=== PATIENT | male | born 2000 | race Caucasian/White ===

== ENCOUNTER 2024-01-28 11:33 | Inpatient (IN) | payer OTHER ==
[~2024-01-28] VITALS: Ht 172.7 cm; Wt 84.2 kg
[~2024-01-28 11:33] MED LIST: CIPRO500 MG PO; METRONIDAZOLE500 MG PO; SULFASALAZINE500 MG PO
--- OUTSIDE RECORDS SUMMARY | 2024-01-28 11:39 | XMS ---
PreManage Notification: ISAAC RATLIFF Security Background Investigator Events No recent Security Events currently on file CRITERIA MET - [facility] - 2 Visits in 30 Days CARE PROVIDERS There are no care providers on record at this time. Foster has no Care Guidelines for this patient. [facility] (12 MO.) [facility] NOTE: Visits indicate total known visits. ED/C VISIT TRACKING (12 MO.) 01/28/2024 11:[address] [facility] [place] TYPE: Emergency COMPLAINT: - ABDOMINDAL PAIN 01/25/2024 20:[address] [facility] [place] TYPE: Emergency COMPLAINT: - RECTAL BLEEDING DIAGNOSES: - Allergy status to narcotic agent - Allergy status to penicillin - Hemorrhage of anus and rectum - Noninfective gastroenteritis and colitis, unspecified INPATIENT VISIT TRACKING (12 MO.) No inpatient visits to display in this time frame [email or web address]
[2024-01-28 11:49] LABS: HEMATOCRIT 36.8 % (35.0-50.0); HEMOGLOBIN 12.2 g/dL (12.0-18.0); MCHC 33.3 g/dl (30-36); MCV 87.3 fl (81-99); PLATELET COUNT 333 K/uL (140-440); RBC 4.21 M/ul (4.3-5.7); RDW 13.6 (10.5-15.0)
[2024-01-28 12:00] LABS: ALBUMIN 3.1 g/dL (3.4-5.0); ALBUMIN/GLOBULIN RATIO 0.72 (1.1-2.4); ANION GAP 12.8 (7-21); BILIRUBIN, TOTAL 0.2 ng/dL (0.2-1.0); BUN/CREATININE RATIO 9.48 (6.0-28.6); CREATININE, SERUM 1.16 mg/dL (0.70-1.30); POTASSIUM 3.8 mmol/L (3.5-5.1); PROTEIN, TOTAL 7.4 g/dL (6.4-8.2)
[2024-01-28] MEDS ORDERED: ondansetron HCL 4 MG/2 ML VIAL IV ONE (12:00)
[2024-01-28] MEDS ORDERED: SODIUM CHLORIDE 0.9% 1,000 ML IV PRN (12:00)
[2024-01-28] MEDS ORDERED: KETOROLAC TROMETHAMINE 15 MG/ML VIAL IV ONE (12:00)
[2024-01-28 12:07] LABS: EOSINOPHILS, MANUAL DIFF 1; LYMPHOCYTES, MANUAL DIFF 8; MONOCYTES, MANUAL DIFF 9; NEUTROPHILS, MANUAL DIFF 82
[2024-01-28 12:27] LABS: LACTIC ACID, BLOOD 1.9 mmol/L (0.4-2.0)
[2024-01-28 13:12] LABS: BILIRUBIN, URINE NEGATIVE (negative); BLOOD/HGB, URINE NEGATIVE (Negative); KETONE, URINE TRACE (Negative); LEUK ESTERASE, URINE NEGATIVE (negative); NITRITE, URINE NEGATIVE (negative)
[2024-01-28] MEDS ORDERED: HYDROCORTISONE SOD SUCCINATE 100 MG/2 ML VIAL IV ONE (14:00)
[2024-01-28] MEDS ORDERED: FAMOTIDINE 20 MG/ 2 ML VIAL IV SCH (14:07)
[2024-01-28] MEDS ORDERED: HEParin SOD (PORCINE) 5,000 UNIT/0.5 ML SYR SUB-Q SCH (14:07)
[2024-01-28] MEDS ORDERED: LACTATED RINGER'S 1,000 ML IV ONE (14:15)
[2024-01-28] MEDS ORDERED: levoFLOXacin 500 MG/100 ML BAG IV SCH (14:15)
[2024-01-28] MEDS ORDERED: KETOROLAC TROMETHAMINE 30 MG/ML VIAL IV PRN (14:15)
[2024-01-28] MEDS ORDERED: HYDROmorphone HCL 1 MG/ML SYR IV PRN (14:15)
[2024-01-28] MEDS ORDERED: LACTATED RINGER'S 1,000 ML IV SCH (14:15)
[2024-01-28] MEDS ORDERED: PROCHLORPERAZINE EDISYLATE 10 MG/2 ML VIAL IV PRN (14:15)
--- NOTE | 2024-01-28 14:30 | NUR ---
PT TO ROOM VIA STRETCHER FROM ER. REPORT RECEIVED FROM BEBE PERSON. 2 GUARDS IN ROOM, PT IN SHACKLES (HANDS AND FEET). PT STATES HE IS HAVING PAIN IN HIS "COLON AND ASS". STATES HIS PAIN IS AT A 4/10 AT THIS TIME AND TOLERABLE, DENIES N/V AT THIS TIME. PT AWARE THAT WE NEED A STOOL SAMPLE AND THAT HE IS NPO AT THIS TIME.
[2024-01-28 15:48] VITALS: BP 122/68
[2024-01-28] MEDS ORDERED: MESALAMINE 400 MG CAPCR PO SCH (16:00)
--- NOTE | 2024-01-28 16:00 | NUR ---
PT RESTING IN BED WITH 2 GUARDS AT BEDSIDE NO REQUESTS AT THIS TIME. PT SHACKLED. CALL LIGHT WITHIN REACH.
[2024-01-28] MEDS ORDERED: BUPRENORPHIN-N1 EACH SL (16:56)
[2024-01-28] MEDS ORDERED: REMERON15 MG PO (16:56)
[2024-01-28] MEDS ORDERED: METHYLPREDNISOLO4 M1 PO (16:57)
[2024-01-28] MEDS ORDERED: AZULFIDINE500 MG PO (16:58)
[2024-01-28] MEDS ORDERED: METRONIDAZOLE500 MG PO (16:58)
--- NOTE | 2024-01-28 16:59 | NUR ---
MED REC COMPLETE
--- NOTE | 2024-01-28 18:24 | NUR ---
PT RESTING IN BED WITH 2 GUARDS AT BEDSIDE, CALL LIGHT WITHIN REACH. NO REQUESTS AT THIS TIME.
--- NOTE | 2024-01-28 19:20 | NUR ---
REPORT RECEIVED FROM GRETA SPENCE. PATIENT AWAKE STANDING AT FOOT OF THE BED IN ROOM. PATIENT REQUESTING FOOD AND DRINK. RN EDUATED PATIENT ON IMPORTANCE OF DIET COMPLIANCE WITH NPO. PATIENT REQUESTING A WARM BLANKET. WARM BLANKET GIVEN. IV SITE WNL, FLUIDS RUNNING WITH NO ISSUES OR CONCERNS. CALL LIGHT WITHIN REACH. OFFICERS AT BEDSIDE WITH PATIENT.
--- NOTE | 2024-01-28 21:15 | NUR ---
PATIENT RESTING IN BED. RN ADMINSTRATING HS MEDICATIONS. HS HEPARIN HELD DUE TO ED ADMINSTRATION TIME. PATIENT AGITATED WITH BEING IN THE HOSPITAL. QUICK TO TALK OVER THIS NURSE. STATING, " IT'S MY CHOICE TO BE TREATED BY YOU GUYS." PATIENT UPSET ABOUT DIET, WANTING TO EAT. RN EDUCATED PATIENT ON IMPORTANCE OF DIET. RN ABLE TO HAVE PATIENT DEMONSTRATE UNDERSTANDING OF IMPORTANCE OF POC AT THIS TIME BY PATIENT'S AGGREANCE TO STAY TONIGHT AND SPEAK WITH DR. DESAI IN THE MORNING. PATIENT DENIES INCREASED PAIN AT THIS TIME. BOWEL TONES POSITIVE X 4 QUADRANTS. IV SITES PATENT. IVF INFUSING WITH NO ISSUES OR CONCERNS. URINAL EMPTIED. NO FURTHER NEEDS AT THIS TIME, CALL LIGHT WITHIN REACH. OFFICERS AT BEDSIDE.
[2024-01-28 21:37] VITALS: BP 135/82
[2024-01-28 22:00] VITALS: BP 135/82
[2024-01-28] MEDS ORDERED: HYDROCORTISONE SOD SUCCINATE 100 MG/2 ML VIAL IV SCH (22:00)
[2024-01-29] VITALS (15 sets, daily range): BP systolic 114–132; BP diastolic 61–92
--- NOTE | 2024-01-29 00:16 | NUR ---
CALL LIGHT ANSWERED. STOOL SAMPLE OBTAINED. PATIENT WITH NO FURTHER NEEDS AT THIS TIME. CALL LIGHT WITHIN REACH. OFFICERS IN ROOM WITH PATIENT.
--- NOTE | 2024-01-29 00:42 | NUR ---
PATIENT EXPRESSED TO THIS RN THAT HE TAKES SUBOXONE 8MG DAILY. THIS RN CONTACTED [facility] AND SPOKE WITH NURSE KEY LUIS WHO CONFIRMED THAT PATIENT TAKING SUBOXONE 8MG DAILY. PATIENT WITH NO S/SX OF WITHDRAW AT THIS TIME. PATIENT CALM RESTING IN BED.
--- NOTE | 2024-01-29 02:00 | NUR ---
PATIENT RESTING IN BED. AWAKE, VSS. DENIES ANY PAIN AT THIS TIME, BOWEL TONES ACTIVE X4. NO FURTHER STOOLS AT THIS TIME. NO NAUSEA OR VOMITTING. CALL LIGHT WITHIN REACH, OFFICERS AT BEDSIDE.
--- NOTE | 2024-01-29 04:00 | NUR ---
PATIENT RESTING IN BED WITH EYES CLOSED. RESPIRATIONS EVEN AND UNLABORED. OFFICERS AT BED SIDE. CALL LIGHT WITHIN REACH.
[2024-01-29 05:27] LABS: BASOPHILS 0.4 % (0-2); EOSINOPHILS 0.4 % (0-6); HEMATOCRIT 36.4 % (35.0-50.0); HEMOGLOBIN 11.6 g/dL (12.0-18.0); LYMPHOCYTES 11.6 % (24-44); MCH 27.9 (27-36); MONOCYTES 8.2 % (0-12); NEUTROPHILS 79.4 % (39-80); PLATELET COUNT 310 K/uL (140-440); RBC 4.18 M/ul (4.3-5.7); RDW 13.6 (10.5-15.0)
--- NOTE | 2024-01-29 05:40 | NUR ---
PATIENT AWAKE IN BED. LAB IN ROOM. PATIENT C/O PAIN IN ABDOMEN AND RECTUM 01/28. PRN ADMINSTERED SEE AUG. NEW BAG OF IVF HUNG. IV SITE PATENT. DENIES ANY NAUSEA. ICE CHIPS GIVEN FOR COMFORT. NO FURTHER NEEDS AT THIS TIME, CALL LIGHT WITHIN REACH. OFFICERS AT BED SIDE.
[2024-01-29 05:45] LABS: ALBUMIN 2.8 g/dL (3.4-5.0); ALBUMIN/GLOBULIN RATIO 0.7 (1.1-2.4); ANION GAP 13.6 (7-21); BILIRUBIN, TOTAL 0.3 ng/dL (0.2-1.0); BUN/CREATININE RATIO 7.77 (6.0-28.6); CALCIUM 8.7 mg/dL (8.5-10.1); CREATININE, SERUM 0.9 mg/dL (0.70-1.30); POTASSIUM 3.6 mmol/L (3.5-5.1); PROTEIN, TOTAL 6.8 g/dL (6.4-8.2)
--- NOTE | 2024-01-29 06:21 | NUR ---
PATIENT AWAKE IN BED WATCHING TV. OFFICERS AT BEDSIDE. IVF INFUSING WITH NO ISSUES OR CONCERNS. NO NEEDS AT THIS TIME. CALLL LIGHT WITHIN REACH.
--- NOTE | 2024-01-29 07:05 | NUR ---
REPORT RECEIVED FROM COAT HANGER SHAPER MACHINE OPERATOR RN LAKSHMI. PATIENT IS SITTING UPRIGHT IN BED WITH EYES OPEN AND RESPIRATIONS ARE EVEN AND UNLABORED. PATIENT WITH 2 [facility] GUARDS AT THE BEDSIDE. PATIENT STATED NO FURTHER NEEDS. CALL LIGHT IS IN REACH.
[2024-01-29] MEDS ORDERED: HYDROCORTISONE SOD SUCCINATE 100 MG/2 ML VIAL ONE (09:45)
--- NOTE | 2024-01-29 09:55 | NUR ---
HYDROCORTISONE DOSE ADMINSTERED PER THE EMAR. FULL ASSESSMENT COMPLETE AND DOCUMENTED IN THE CHART. PATIENT WITH PAIN RATED 5/10 IN THE ABDOMEN. PATIENT IS NOT REQUESTING PAIN MEDICATION AT THIS TIME. SENSATION INTACT WITH NO COMPLAINTS OF NUMBNESS AND TINGLING. LUNG SOUNDS ARE CLEAR IN ALL LUNG GRIDER BILATERALLY AND THE PATIENT IS ON ROOM AIR. IV SITE IN THE RAC FLUSHED WITH 10 ML NORMAL SALINE. IV DRESSING IS CLEAN, DRY, AND INTACT. LR IS INFUSING AT 85 ML/HR. LEVAQUIN INFUSION COMPLETE. IV SITE IN THE LAC DUE TO PATIENT REQUEST AND PAIN WITH FLUSHING THE SITE. CATHETER TIP INTACT. CARDIAC WITH NORMAL S1 AND S2 ON AUSCULTATION. RADIAL PULSES ARE STRONG BILATERALLY. BOWEL TONES ARE ACTIVE IN ALL FOUR QUADRANTS. PATIENT LAST BOWEL MOVEMENT WAS 01/28/24. PATIENT WITH NPO WITH CLEAR FOR COMFORT. SKIN INTACT. PATIENT WITH TWO [facility] GUARDS AT THE BEDSIDE. [facility] RESTRAINTS IN PLACE. PATIENT STATED NO FURTHER NEEDS AT THIS TIME. CALL LIGHT AND PERSONAL BELONGINGS ARE WITHIN REACH.
--- NOTE | 2024-01-29 10:50 | NUR ---
ROUNDED WITH RN AND PATIENT. PATIENT EXPRESSED UNDERSTANDING ABOUT THE PLAN MOVING FORWARD. PATIENT WITH TWO [facility] GUARDS AT THE BEDSIDE. PATIENT STATED NO FURTHER NEEDS AT THIS TIME. CALL LIGHT AND PERSONAL BELONGINGS ARE WITHIN REACH.
[2024-01-29] MEDS ORDERED: Buprenorphine/Naloxone 8/2mg 1 EACH HOME.PACK SL SCH (11:00)
--- NOTE | 2024-01-29 11:23 | HP ---
[facility] [address], [place] [address] Signed ADMISSION DATE: 01/28/2024 PROBLEM: Probable moderately severe ulcerative colitis. HISTORY OF PRESENT ILLNESS: This 23-year-old white man is a prisoner at [facility]. He was taken to the emergency room today with increasing abdominal pain, diarrhea, and fever. The patient was seen several days ago in the emergency room on January 25, 2024, with similar but less intense complaints and a CT scan was performed of the abdomen. This showed mild diffuse colonic wall thickening and pericolonic inflammation consistent with colitis. He was treated with antibiotics and a Medrol Dosepak returning to the long-term. He has had worsening of his symptoms. Evaluation by Dr. Luna today confirms that he had been started on Cipro, Flagyl, and Decadron. His situation has worsened as regards to diarrhea and nausea and some vomiting and reported fevers and increasing abdominal pain rated 7/10. He has had some "rust-colored diarrhea" as well. Notably, his family history does include probable ulcerative colitis in his mother. It is his mother's birthday today and he is hoping to talk to her despite the logistical issues and will confirm that diagnosis with her we hope. PAST MEDICAL HISTORY: Does include hand surgery on the right side in the past. SOCIAL HISTORY: He has been incarcerated since May. Notably he had bloody diarrhea at the [facility] intake facility but no specific diagnostic interventions were undertaken. The patient being assured that it would be taken care of at his final destination locally at [facility]. To be sure, the patient has had episodic blood per rectum and diarrhea. ALLERGIES: The patient has allergy to penicillin and morphine. CURRENT MEDICINES: Include Flagyl, Cipro and apparently sulfasalazine, though it is uncertain if he was treated with that yet. REVIEW OF SYSTEMS: The patient does have abdominal pain. He has had no fever or chills. He denies recent Electronically Signed By: AIDAN DESAI MD 01/29/24 1123 PATIENT NAME: SIAAC RATLIFF HISTORY AND PHYSICAL DATE OF : [birth year] REPORT #: [id number] PHYSICIAN: AIDAN DESAI MD PCP: MOI STEPHEN NP REPORT IS CONFIDENTIAL AND NOT TO BE RELEASED WITHOUT AUTHORIZATION [facility] [address] [place] [id number] Signed vomiting, but does not feel like eating. PHYSICAL EXAMINATION: GENERAL: A relatively thin white man, who looks to be moderately uncomfortable at this time. VITAL SIGNS: Show a temperature of 98, pulse of 101, previously 111; blood pressure 109 systolic, O2 saturation 99% on room air. NECK: Trachea is midline. HEENT: Mucous membranes are reasonably moist. CHEST: Clear. HEART: Regular without murmur. ABDOMEN: Abdominal palpation shows reasonably soft abdomen. Mild tenderness is noted throughout. He does not have generalized peritonitis. EXTREMITIES: Show no clubbing, cyanosis, or edema. LABORATORY STUDIES: Today show white count of 21,000, hematocrit 36.8, platelets 333,000. Chem profile is essentially normal. Liver enzymes normal. Albumin 3.1. Urinalysis is essentially normal. ASSESSMENT: Almost certainly the patient has acute ulcerative colitis. He has had progression of his symptoms despite oral antibiotics and oral steroids and presumably sulfasalazine that was initiated. I would recommend admission to the hospital, fluid resuscitation, parenteral antibiotics, IV steroids (hydrocortisone 100 mg IV q.8), DVT prophylaxis, and ultimately endoscopic evaluation to confirm clinical suspicion of acute ulcerative colitis. Discussed all this with him. He understands and agrees. MD SHERRILL Roque/MODL /[id number] cc: Dr. Luna Electronically Signed By: AIDAN DESAI MD 01/29/24 1123 PATIENT NAME: ISAAC RATLIFF HISTORY AND PHYSICAL DATE OF : [birth year] REPORT #: [id number] PHYSICIAN: AIDAN DESAI MD PCP: MOI STEPHEN NP REPORT IS CONFIDENTIAL AND NOT TO BE RELEASED WITHOUT AUTHORIZATION [facility] [address], [place] [address] [facility] Issac Cota MD Copies: ISSAC COTA MD ~ Electronically Signed By: AIDAN DESAI MD 01/29/24 1123 PATIENT NAME: ISAAC RATLIFF HISTORY AND PHYSICAL DATE OF : [birth year] REPORT #: [id number] PHYSICIAN: AIDAN DESAI MD PCP: MOI STEPHEN NP REPORT IS CONFIDENTIAL AND NOT TO BE RELEASED WITHOUT AUTHORIZATION
[2024-01-29] MEDS ORDERED: buprenorphine HCL 8 MG TAB.SUBL SL SCH (11:30)
--- NOTE | 2024-01-29 11:39 | NUR ---
PATIENT JUST LEFT THE MEDICAL SURGICAL FLOOR WITH [facility] GUARDS TO COLONOSCOPY.
[2024-01-29] MEDS ORDERED: propofoL 200 MG/20 ML VIAL ONE ×2 (11:43→12:03)
--- NOTE | 2024-01-29 12:30 | NUR ---
01/29/24 1230 Francie,Amanda 1211 PT ARRIVED TO PACU ON RA PT ASLEEP AND RESP SHARONDA AND UNLABORED. VSS. 1220 PT WOKE AND IS REORINETED TO PACU, PT IS DIAPHORETIC AND COOL AIR GIVEN TO PT. PT DENIES PAIN AND IS ENCOURAGED TO PASS GAS NEEDED.
--- NOTE | 2024-01-29 12:58 | NUR ---
PATIENT ARRIVED TO THE MEDICAL SURGICAL FLOOR AND IS ALERT AND ORIENTED. PATIENT WITH TWO [facility] GUARDS AT THE BEDSIDE.
--- NOTE | 2024-01-29 13:15 | NUR ---
PATIENT IS SITTING UPRIGHT IN THE BED WITH TWO [facility] GUARDS AT THE BEDSIDE. VITAL SIGNS TAKEN AND DOCUMENTED IN THE CHART. ASSESSMENT COMPLETE AND DOCUMENTED IN THE CHART. IV SITE IN THE RAC FLUSHED WITH 10 ML NORMAL SALINE. IV DRESSING IS CLEAN, DRY, AND INTACT. LR IS INFUSING AT 85 ML/HR. LUNG SOUNDS ARE CLEAR IN ALL LUNG GRIDER BILATERALLY. PATIENT IS ON ROOM AIR. CARDIAC WITH NORMAL S1 AND S2 ON AUSCULATION. RADIAL PULSES ARE STRONG BILATERALLY. SENSATION INTACT WITH NO COMPLAINTS OF NUMBNESS AND TINGLING. PATIENT WITH PAIN RATED 3/10 AND IS NOT REQUESTING PAIN MEDICATION AT THIS TIME. BOWEL TONES ARE ACTIVE IN ALL FOUR QUADRANTS. PATIENT LAST BOWEL MOVEMENT WAS 01/28/24. PATIENT DIET IS A FULL LIQUID AND LOW FIBER DIET. LUNCH TRAY ORDERED BY RN AND PATIENT GIVEN A MENU TO ORDER DINNER. SKIN INTACT. PATIENT STRENGTH NORMAL. PATIENT STATED NO FURTHER NEEDS AT THIS TIME. CALL LIGHT AND PERSONAL BELONGINGS ARE WITHIN REACH.
--- NOTE | 2024-01-29 14:31 | NUR ---
PT RESTING IN BED WITH 2 GUARDS AT BEDSIDE. NO REQUESTS AT THIS TIME. VS STABLE.
--- NOTE | 2024-01-29 15:29 | NUR ---
VITAL SIGNS TAKEN AND DOCUMENTED IN THE CHART. PATIENT WITH PAIN RATED 3/10 AND IS NOT REQUESTING ANYTHING FOR PAIN. DINNER ORDER PLACED BY RN. PATIENT WITH [facility] RESTRAINTS IN PLACE WITH TWO [facility] GUARDS AT THE BEDSIDE. PATIENT STATED NO FURTHER NEEDS AT THIS TIME. CALL LIGHT AND PERSONAL BELONGINGS ARE WITHIN REACH.
--- NOTE | 2024-01-29 16:46 | NUR ---
1700 FLAGYL DOSE ADMINISTERED PER THE EMAR. PATIENT IS SET UP IN THE SHOWER WITH THE TWO [facility] GUARDS IN THE ROOM. PATIENT EDUCATED TO CALL THE NURSES STATION WHEN FINISHED. PATIENT AND GUARDS EXPRESSED UNDERSTANDING. PATIENT STATED NO FURTHER NEEDS AT THIS TIME. CALL LIGHT AND PERSONAL BELONGINGS ARE WITHIN REACH.
[2024-01-29] MEDS ORDERED: metroNIDAZOLE 250 MG TAB PO SCH (17:00)
--- NOTE | 2024-01-29 18:26 | NUR ---
PATIENT IS LYING IN BED WITH EYES OPEN AND WATCHING TV. TWO [facility] GUARDS ARE SITTING AT THE BEDSIDE. PATIENT STATED NO NEEDS AT THIS TIME, CALL LIGHT AND PERSONAL BELONGINGS ARE WITHIN REACH.
--- NOTE | 2024-01-29 19:15 | NUR ---
RECEIVED REPORT FROM DAY SHIFT RN. PATIENT IS RESTING IN BED. PATIENT DENIES ANY PAIN OR NAUSEA. NO FURTHER NEEDS REPORTED. IV INFUSING PER ORDER. X2 GUARDS PRESENT IN THE ROOM.
--- NOTE | 2024-01-29 21:16 | NUR ---
PATIENTS VITALS TAKEN AND RECORDED. PATIENT UP TO THE BR. PATIENT ABLE TO VOID. PATIENTS INTAKE AND OUTPUT RECORDED. PATIENTS PM MEDS GIVEN PER ORDER. PATIENT ASSEMENT COMPLETED. PATIENT DENIES ANY PAIN OR NAUSEA. PATIENT DENIES ANY FURTHER NEEDS. CALL LIGHT IN REACH. IV INFUSING PER ORDER.
--- NOTE | 2024-01-29 22:35 | NUR ---
PATIENT IS RESTING IN BED. PATIENT DENIES ANY PAIN OR NAUSEA. SNACK PROVIDED. NO FURTHER NEEDS NOTED. CALL LIGHT IN REACH.
[2024-01-30] VITALS (8 sets, daily range): BP systolic 115–133; BP diastolic 62–83
--- NOTE | 2024-01-30 00:21 | NUR ---
PATIENT PROVIDED ICE CHIPS. PATIENT IS RESTING IN BED WATCHING TV. PATIENT DENIES ANY PAIN OR NAUSEA. NO FURTHER NEEDS NOTED. CALL LIGHT IN REACH. IV INFUSING PER ORDER.
--- NOTE | 2024-01-30 02:16 | NUR ---
PATIENT IS RESTING IN BED ON LEFT SIDE WITH EYES CLOSED, RR15. X2 GUARDS AT BEDSIDE. CALL LIGHT IN REACH. IV INFUSING PER ORDER.
--- NOTE | 2024-01-30 04:19 | NUR ---
PATIENT IS RESTING IN BED WITH EYES CLOSED, RR 15. IV INFUSING PER ORDER. CALL LIGHT IN REACH. X2 GUARDS AT THE BEDSIDE.
[2024-01-30 05:23] LABS: BASOPHILS 0.2 % (0-2); EOSINOPHILS 0.2 % (0-6); HEMATOCRIT 33.3 % (35.0-50.0); HEMOGLOBIN 11.2 g/dL (12.0-18.0); LYMPHOCYTES 12.8 % (24-44); MCH 28.9 (27-36); MCHC 33.7 g/dl (30-36); MCV 85.7 fl (81-99); MONOCYTES 6.5 % (0-12); NEUTROPHILS 80.3 % (39-80); PLATELET COUNT 316 K/uL (140-440); RBC 3.88 M/ul (4.3-5.7); RDW 13.2 (10.5-15.0)
--- NOTE | 2024-01-30 05:28 | NUR ---
LAB IN ROOM. PATIENTS VITALS TAKEN AND RECORDED. INTAKE AND OUTPUT RECORDED. PATIENT DENIES ANY PAIN OR NAUSEA. AM MEDS GIVEN PER ORDER. PATIENTS IV INFUSING PER ORDER. PATIENT PROVIDED SNACK. NO FURTHER NEEDS NOTED. CALL LIGHT IN REACH.
--- NOTE | 2024-01-30 06:58 | NUR ---
REPORT RECEIVED FROM SOCIAL MEDIA MARKETING SPECIALIST RN TAMMI. PATIENT IS LYING IN BED AND WATCHING TV. PATIENT WITH 2 [facility] GUARDS AT THE BEDSIDE. PATIENT STATED NO NEEDS AT THIS TIME. CALL LIGHT AND PERSONAL BELONGINGS ARE WITHIN REACH.
--- NOTE | 2024-01-30 07:50 | NUR ---
PATIENT IS LYING IN BED ON THEIR RIGHT SIDE WITH EYES CLOSED AND RESPIRATIONS ARE EVEN AND UNLABORED. CALL LIGHT AND PERSONAL BELONGINGS ARE WITHIN REACH.
[2024-01-30] MEDS ORDERED: IBUPROFEN 600 MG TAB PO PRN (08:00)
[2024-01-30] MEDS ORDERED: FAMOTIDINE 20 MG TAB PO SCH (09:00)
[2024-01-30] MEDS ORDERED: levoFLOXacin 500 MG TAB PO SCH (09:00)
--- NOTE | 2024-01-30 10:35 | NUR ---
VITAL SIGNS TAKEN AND DOCUMENTED IN THE CHART. FULL ASSESSMENT COMPLETE AND DOCUMENTED IN THE CHART. PATIENT IS ALERT AND ORIENTED TIMES FOUR. IV SITE IN THE RAC FLUSHED WITH 10 ML NORMAL SALINE. IV DRESSING IS CLEAN, DRY, AND INTACT. LR IS INFUSING AT 85 ML/HR. LUNG SOUNDS ARE CLEAR IN ALL LUNG GRIDER BILATERALLY. PATIENT IS ON ROOM AIR. CARDIAC WITH NORMAL S1 AND S2 ON AUSCULTATION. RADIAL AND PEDAL PULSES ARE STRONG BILATERALLY. CAPILLARY REFILL IN THE UPPER AND LOWER EXTREMITIES IS LESS THAN 3 SECONDS BILATERALLY. SENSATION INTACT WITH NO COMPLAINTS OF NUMBNESS AND TINGLING. ACTIVE BOWEL TONES IN ALL FOUR QUADRANTS. PATIENT IS ON A FULL LIQUID DIET WITH LOW FIBER. PATIENT HAD A BOWEL MOVEMENT EARLIER THIS MORNING. SKIN INTACT WITH SCATTERED TATTOOS NOTED. PATIENT WITH TWO [facility] GUARDS AT THE BEDSIDE. PATIENT STATED NO FURTHER NEEDS AT THIS TIME. CALL LIGHT AND PERSONAL BELONGINGS ARE WITHIN REACH.
[2024-01-30] MEDS ORDERED: PANTOPRAZOLE SODIUM 40 MG TABEC PO SCH (11:15)
[2024-01-30] MEDS ORDERED: predniSONE 20 MG TAB PO SCH (11:15)
--- NOTE | 2024-01-30 11:46 | NUR ---
PATIENT 1100 AND 1200 MEDICATIONS ADMINISTERED PER THE EMAR. SCDS PLACED ON THE PATIENTS BILATERAL LOWER EXTREMITIES. URINAL EMPTIED AT THIS TIME. TWO [facility] GUARDS ARE IN THE ROOM. PATIENT STATED NO FURTHER NEEDS AT THIS TIME. CALL LIGHT AND PERSONAL BELONGINGS ARE WITHIN REACH.
--- NOTE | 2024-01-30 12:57 | NUR ---
PATIENT IS LYING IN BED WITH EYES OPEN AND RESPIRATIONS ARE EVEN AND UNLABORED. PATIENT IS WATCHING TV WITH TWO GUARDS SITTING ON THE BEDSIDE. PATIENT STATED NO FURTHER NEEDS AT THIS TIME. CALL LIGHT AND PERSONAL BELONGINGS ARE WITHIN REACH.
--- NOTE | 2024-01-30 15:22 | NUR ---
PATIENT STATED PAIN WAS 4/10 IN THE ABDOMEN WHEN ASKED BY RN. PATIENT IS NOT REQUESTING ANYTHING FOR PAIN AT THIS TIME. BOWEL TONES ARE ACTIVE IN ALL FOUR QUADRANTS. PATIENT AMBULATED 3 LAPS ON THE MEDICAL SURGICAL FLOOR WITH THE TWO [facility] GUARDS. PATIENT TOLERATED AMBULATING WELL. PATIENT RECONNECTED TO THE [facility]. PATIENT STATED NO FURTHER NEEDS AT THIS TIME. CALL LIGHT AND PERSONAL BELONGINGS ARE WITHIN REACH.
[2024-01-30 17:08] LABS: C. DIFF TOXIN B GENE TCDB,PCR Not Detected (())
--- NOTE | 2024-01-30 17:16 | NUR ---
PATIENT IS SITTING UPRIGHT IN BED AND EATING DINNER AT THIS TIME. PATIENT WITH TWO GUARDS SITTING AT THE BEDSIDE. PATIENT STATED NO FURTHER NEEDS AT THIS TIME. CALL LIGHT AND PERSONAL BELONGINGS ARE WITHIN REACH.
--- NOTE | 2024-01-30 18:11 | NUR ---
URINAL DUMPED AT THIS TIME. PATIENT DISCONNECTED FROM THE SCDS. TWO GUARDS ARE AT THE BEDSIDE. PATIENT STATED NO FURTHER NEEDS AT THIS TIME. CALL LIGHT AND PERSONAL BELONGINGS ARE WITHIN REACH.
--- NOTE | 2024-01-30 19:26 | NUR ---
REPORT RECEIVED FROM DAY SHIFT RN. PT LYING IN BED ALERT AND ORIENTED DENIES NEEDS. WHITE BOARD UPDATED. CALL LIGHT IN REACH.
--- NOTE | 2024-01-30 20:30 | NUR ---
EVENING ASSESSMENT COMPLETE. SCHEDULED MEDS ADMIN PER EMAR. IVF INFUSING PER ORDER. PT REPORTS "COLON" PAIN 09/28. DENIES PRN FOR PAIN WHEN OFFERED. DENIES NAUSEA. ABD SOFT. BOWEL TONES ACTIVE. VS AND I&O OBTAINED. PT DENIES FURTHER NEEDS. GUARDS X 2 IN THE ROOM. CALL LIGHT IN REACH.
--- NOTE | 2024-01-30 21:45 | NUR ---
CALL LIGHT ANSWERED. PT REPORTS HAD BM. SM LIQUID BROWN BM NOTED. URINAL EMPTIED. NO FURTHER NEEDS.
--- NOTE | 2024-01-31 00:19 | NUR ---
PT RESTING IN BED WITH EYES CLOSED. RESPIRATIONS EVEN. CALL LIGHT IN REACH.
--- NOTE | 2024-01-31 01:57 | NUR ---
PT RESTING IN BED WITH EYES CLOSED LYING ON LEFT SIDE. RESPIRATIONS EVEN. GUARDS X 2 IN ROOM.
[2024-01-31 02:19] VITALS: BP 133/66
--- NOTE | 2024-01-31 03:43 | NUR ---
PT RESTING WITH EYES CLOSED. RESPIRATIONS EVEN. URINAL EMPTIED. GUARDS IN ROOM. COFFEE PROVIDED. CALL LIGHT IN REACH.
[2024-01-31 05:22] VITALS: BP 126/74
[2024-01-31 05:39] LABS: BASOPHILS 0.5 % (0-2); EOSINOPHILS 1.2 % (0-6); HEMATOCRIT 35.2 % (35.0-50.0); HEMOGLOBIN 11.3 g/dL (12.0-18.0); LYMPHOCYTES 18.1 % (24-44); MCH 28.2 (27-36); MCHC 32.2 g/dl (30-36); MCV 87.5 fl (81-99); MONOCYTES 5.8 % (0-12); NEUTROPHILS 74.4 % (39-80); PLATELET COUNT 323 K/uL (140-440); RBC 4.02 M/ul (4.3-5.7); RDW 13.6 (10.5-15.0)
--- NOTE | 2024-01-31 05:45 | NUR ---
LAB IN ROOM FOR MORNING DRAW. VS AND I&O OBTAINED. PT REPORTS ABD PAIN 01/28. PRN FOR PAIN ADMIN PER EMAR. ABD ASSESSMENT UNCHANGED. PT DENIES NAUSEA. NO FURTHER NEEDS. CALL LIGHT IN REACH.
--- NOTE | 2024-01-31 07:09 | NUR ---
RECIEVED REPORT FROM BEBE MAC.
--- NOTE | 2024-01-31 07:56 | NUR ---
PT REFUSED HEPARIN, PLACED SCD'S ON HIS LEGS. CONFIRMED WITH PT THAT HE ONLY HAD ONE BM THROUGHOUT NIGHT. TRIED TO STATE HE HAD MORE BUT RECONSIDERED WHEN STATED HE NEEDED TO MAKE SURE AND CALL EACH TIME WE HAVE TO CHART IT EACH TIME. PT UPSET THAT BREAKFAST IS NOT HERE YET. GUARDS IN ROOM.
--- NOTE | 2024-01-31 08:51 | NUR ---
UR CLINICAL REVIEW: [facility] [place], ADVISED WISHES TO LEAVE PATIENT OBS AT THIS TIME [facility] 01/28/24 @ 1109 ORDER [facility] FAXED TO [facility] DISCHARGE TO HOME WHEN STABLE 02/01/24
[2024-01-31 09:16] VITALS: BP 123/64
--- NOTE | 2024-01-31 09:39 | NUR ---
PT LAYING IN BED WITH EYES CLOSED, GUARDS IN ROOM. PT DENIES CONCERNS AND HAS NOT HAD A BM YET THIS MORNING. ATE BREAKFAST, TOLERATED WELL.
--- NOTE | 2024-01-31 11:06 | NUR ---
PT CONTINUES TO REST IN BED. DENIES CONCERNS. PT REMINDED TO AMBULATE IN HALLS. CALL LIGHT WITHIN REACH.
--- NOTE | 2024-01-31 11:43 | NUR ---
PATIENT IS FROM [facility]. THERE ARE 2 GUARDS AT BEDSIDE. PATIENT WENT TO THE OR TODAY. PATIENT WILL RETURN TO [facility] WHEN THE MD DECIDES THE PATIENT IS MEDICALLY STABLE.
--- NOTE | 2024-01-31 13:09 | NUR ---
PT WATCHING TV AND AGREED TO AMBULATE IN [place] 3 LAPS.
[2024-01-31 13:24] VITALS: BP 126/67
[2024-01-31] MEDS ORDERED: LEVOFLOXACIN500 MG PO (15:19)
[2024-01-31] MEDS ORDERED: METRONIDAZOLE250 MG PO (15:20)
[2024-01-31] MEDS ORDERED: PANTOPRAZOLE SO40 MG PO (15:20)
[2024-01-31] MEDS ORDERED: DELZICOL400 M1 PO (15:21)
[2024-01-31] MEDS ORDERED: PREDNISONE20 MG PO (15:23)
[2024-01-31 15:58] VITALS: BP 117/82
--- NOTE | 2024-02-02 11:05 | DS ---
[facility] [address] [place], [place] [address] Signed ADMISSION DATE: 01/28/2024 DISCHARGE DATE: 01/31/2024 REASON FOR ADMISSION: This 23-year-old white man is a prisoner at [facility]. He was brought to the emergency room with increasing abdominal pain, diarrhea, and fever. HISTORY: He had been seen several days previously in the emergency room on January 25, 2024, with similar but less intense complaints and a CT scan performed at that time showed mild diffuse colonic thickening and pericolonic inflammation consistent with colitis. He was treated with antibiotics and a Medrol Dosepak upon return to the longterm, he was not admitted. He has had worsening of his symptoms. Evaluation by Dr. Luna, emergency room physician, confirms he had been started on Cipro, Flagyl, and Decadron. Since his symptoms have worsened and he is now evaluated once again in the emergency room, he is admitted for further evaluation and care due to dehydration and worsening symptoms clinically of colitis. Of special note, the patient does have family history of ulcerative colitis in his mother. PERTINENT PHYSICAL EXAMINATION: GENERAL: At the time of admission showed relatively thin white man who looks to be moderately uncomfortable.. VITAL SIGNS: Temperature is 98, pulse 101, previously 111; blood pressure , O2 saturation 99% on room air. NECK: Trachea is midline. CHEST: Clear. HEENT: Mucous membranes moist. HEART: Regular without murmur. ABDOMEN: Soft abdomen with mild tenderness throughout but without generalized peritonitis. LABORATORY STUDIES: Showed a white count of 21,000, hematocrit 36.8, platelets 333,000. A C-reactive protein was greater than 4.8. HOSPITAL COURSE: A CT scan was not repeated as it was quite likely that he had worsening of ulcerative colitis. He was admitted, given intravenous fluid resuscitation, hydrocortisone 100 mg IV q.8 hours, parenteral antibiotics piperacillin initially and stool studies obtained. Electronically Signed By: AIDAN DESAI MD 02/02/24 1105 PATIENT NAME: ISAAC RATLIFF DISCHARGE SUMMARY DATE OF : [birth year] REPORT #: [id number] PHYSICIAN: AIDAN DESAI MD PCP: MOI STEPHEN NP REPORT IS CONFIDENTIAL AND NOT TO BE RELEASED WITHOUT AUTHORIZATION [facility] [address] [place] [address] Signed Blood cultures had additionally been under taken. The blood cultures are negative and at time of this dictation, the actual results of the stool studies are still pending. The patient had improvement of his symptoms with the aforementioned interventions. So as to confirm high suspicion of probable ulcerative colitis, he underwent colonoscopy on January 29, 2024 (Wednesday) confirming findings completely consistent with ulcerative colitis. This included the cecum and all points distalward. Intubation of the ileum showed no sign of inflammation to assess unlikely to be Crohn disease. He was transitioned to oral antibiotics, Levaquin and Flagyl and transitioned to oral steroid prednisone 40 mg daily as well as continued use of Protonix as a site of protective agent. He was maintained with DVT prophylaxis given his increased risk of hyperthrombotic state from ulcerative colitis. His bowel movements decreased in amount and volume to less than three daily. He is discharged back to the longterm with a regimen of prednisone orally administered antibiotics by mouth and mesalamine, which had been initiated at time of admission as well. I will plan to see him in 4 to 6 weeks and we will continue to monitor his progress regarding his ulcerative colitis. DISCHARGE MEDICATIONS: Will include: 1. Levaquin 500 mg p.o. daily #10, refill 0. 2. Flagyl 250 mg p.o. t.i.d. #30, refill 0. 3. Pantoprazole 40 mg p.o. daily #60, refill 3. 4. Mesalamine (Delzicol 400 mg two tablets p.o. t.i.d. (2.4 g daily) #90, refill 4. 5. Prednisone 10 mg tablets four tablets p.o. daily for two weeks, tapering every two weeks by 10 mg. Specifically, 40 mg p.o. daily x2 weeks, then 30 mg p.o. daily x2 weeks, 20 mg, etc. 6. He will continue his usual medication buprenorphine, naloxone 8 mg daily sublingual and mirtazapine (Remeron) 15 mg p.o. at bedtime. 7. He will discontinue his previous regimen of methylprednisolone 4 mg tablets, Flagyl 500 and sulfasalazine 500 in favor of the aforementioned regimen. DISCHARGE DIAGNOSES: 1. Ulcerative colitis. Final pathology pending, consistent diagnosis based on endoscopic findings and clinical course. 2. Opiate abuse substance disorder, now on buprenorphine. FOLLOWUP PLANS: We will plan to see him in 4 to 6 weeks following discharge and available to assist as needed through the [facility]. Electronically Signed By: AIDAN DESAI MD 02/02/24 1105 PATIENT NAME: ISAAC RATLIFF DISCHARGE SUMMARY DATE OF : [birth year] REPORT #: [id number] PHYSICIAN: AIDAN DESAI MD PCP: MOI STEPHEN NP REPORT IS CONFIDENTIAL AND NOT TO BE RELEASED WITHOUT AUTHORIZATION [address] [place], [place] [address] Signed MD SHERRILL Roque/MODL /[id number] cc: MD Dr. Jeremy Villeda Copies: ALISON COTA MD ~ Electronically Signed By: AIDAN DESAI MD 02/02/24 1105 PATIENT NAME: ISAAC RATLIFF DISCHARGE SUMMARY DATE OF : [birth year] REPORT #: [id number] PHYSICIAN: AIDAN DESAI MD PCP: MOI STEPHEN NP REPORT IS CONFIDENTIAL AND NOT TO BE RELEASED WITHOUT AUTHORIZATION
--- NOTE | 2024-02-02 11:05 | OR ---
[facility] [address] [place], [place] [address] Signed DATE OF OPERATION: 01/28/2024 SURGEON: Aidan Desai MD PREOPERATIVE DIAGNOSIS: Probable ulcerative colitis. POSTOPERATIVE DIAGNOSIS: Pancolitis with ileal sparing most consistent with ulcerative colitis as suspected. PROCEDURES: 1. Total colonoscopy to cecum with intubation of ileum. 2. Biopsy of ileum and biopsies throughout colon. ANESTHESIA: Propofol infusion; Black Hardy CRNA. INDICATION: This 23-year-old white man presented for the second time to the emergency room yesterday and evaluated by Dr. Luna and ultimately admitted by me with findings consistent with severe ulcerative colitis. He has had several weeks of rust-colored diarrhea. He was seen previously and was treated with a Medrol Dosepak, antibiotics and initiation of Delzicol, but had worsening of his symptoms quite promptly. His evaluation showed a white count of 21,000 (today, now decreased to 18,000) and findings on previous CT scan showing pancolitis. He is suspected to have ulcerative colitis based on his clinical and radiographic findings. Hospitalization thus far included fluid resuscitation with IV crystalloid solution, hydrocortisone 100 mg IV q.8 hours, antibiotic Levaquin and Flagyl intravenously administered. Stool study assessment, cytoprotection of stomach with Pepcid, DVT prophylaxis. Initiation of mesalamine 800 mg t.i.d. and liquid diet. He has had much improvement already. He is now safe to undergo colonoscopy. I do not believe he needs a formal bowel prep considering his diarrhea problem over the past two weeks. The risk of bleeding, infection, and perforation related to colonoscopy was discussed with him in detail. He understands and wished to proceed. FINDINGS: Indeed he did have pancolitis. This included the rectum and all of the colon including the cecum. Intubation of the ileum showed it to be normal. Diagnosis was most Electronically Signed By: AIDAN DESAI MD 02/02/24 1105 PATIENT NAME: ISAAC RATLIFF OPERATIVE REPORT DATE OF : [birth year] REPORT #: [id number] PHYSICIAN: AIDAN DESAI MD PCP: MOI STEPHEN NP REPORT IS CONFIDENTIAL AND NOT TO BE RELEASED WITHOUT AUTHORIZATION [facility] [address] [place], [place] [address] Signed consistent with ulcerative colitis. It was moderate to severe in degree. There was no sign of stricture. No other abnormalities. PROCEDURE IN DETAIL: The patient was brought to the endoscopy suite and placed in lateral decubitus position. He was given intravenous sedation to the point of slurred speech, nystagmus and ultimately deeper anesthesia. Notably, patient is on buprenorphine for prior opiate dependency issues. Digital rectal examination was normal. Olympus video colonoscope was passed in the rectum immediately noted proctitis. Scope was manipulated carefully throughout the colon with irrigation as necessary ultimately intubating the cecum. There was moderately severe colitis throughout the entire colon including the cecum. Biopsies were taken of the cecum and ultimately the ileocecal valve was well defined and with various manipulations, the scope was passed into the ileum. The ileal tissue was entirely normal with normal villi. Biopsies were obtained there as well. Scope was then withdrawn and examination throughout the colon showed a similar degree of colitis throughout. Biopsies were taken of the cecum, right transverse colon, left colon, sigmoid and rectum. Retroflexed view was otherwise normal. Scope was removed. The patient was taken to the recovery room in good condition. CONCLUDING DIAGNOSIS: Findings completely consistent with ulcerative colitis. No evidence of Crohn's disease as there is ileal sparing. We await Pathology reports. PLAN: We will continue current management as described for the time being. Ultimately to transition to oral steroids and other of the usual interventions including mesalamine. MD SHERRILL Roque/TRICIAL /[id number] cc: [facility] Medical Department Electronically Signed By: AIDAN DESAI MD 02/02/24 1105 PATIENT NAME: ISAAC RATLIFF OPERATIVE REPORT DATE OF : [birth year] REPORT #: [id number] PHYSICIAN: AIDAN DESAI MD PCP: MOI STEPHEN NP REPORT IS CONFIDENTIAL AND NOT TO BE RELEASED WITHOUT AUTHORIZATION [facility] [address] [facility] [place], [place] [address] Signed Copies: ~ Electronically Signed By: AIDAN DESAI MD 02/02/24 1105 PATIENT NAME: ISAAC RATLIFF OPERATIVE REPORT DATE OF : [birth year] REPORT #: [id number] PHYSICIAN: AIDAN DESAI MD PCP: MOI STEPHEN NP REPORT IS CONFIDENTIAL AND NOT TO BE RELEASED WITHOUT AUTHORIZATION
--- NOTE | 2024-02-02 17:15 | PATH ---
[facility] [address] [place], [place] [address] Signed SPECIMEN(S): A CECUM COLON BIOPSY SPECIMEN(S): B TERMINAL ILEUM BIOPSY SPECIMEN(S): C TRANSVERSE COLON BIOPSY SPECIMEN(S): D DESCENDING/LEFT COLON BIOPSY SPECIMEN(S): E SIGMOID COLON BIOPSY SPECIMEN(S): F RECTUM BIOPSY SPECIMEN SOURCE: A. CECUM COLON BIOPSY B. TERMINAL ILEUM BIOPSY C. TRANSVERSE COLON BIOPSY D. DESCENDING/LEFT COLON BIOPSY E. SIGMOID COLON BIOPSY F. RECTUM BIOPSY CLINICAL HISTORY: Preop: Acute colitis. Postop: Pancolitis, probably ulcerative. FINAL PATHOLOGIC DIAGNOSIS: A. Cecum colon biopsy: - Chronic minimally active colitis, negative for dysplasia. B. Terminal ileum biopsy: - Benign small bowel-type mucosa, negative for specific diagnostic abnormality. C. Transverse colon biopsy: - Chronic active colitis. - Negative for dysplasia. D. Descending/left colon biopsy: - Mild chronic active colitis, negative for dysplasia. E. Sigmoid colon biopsy: - Mild chronic active colitis, negative for dysplasia. F. Rectum biopsy: - Quiescent colonic mucosa, negative for dysplasia. COMMENT: The mild chronic active colitis is compatible with inflammatory bowel disease (clinical ulcerative colitis) in the appropriate context. Clinical correlation is requested for definitive characterization. JVR:[id number] PATIENT NAME: ISAAC PENNY PATHOLOGY DATE OF : [birth year] REPORT #: [id number] PHYSICIAN: [facility] PCP: MOI STEPHEN NP REPORT IS CONFIDENTIAL AND NOT TO BE RELEASED WITHOUT AUTHORIZATION [facility] [address] [place], [place] [address] Signed MICROSCOPIC EXAMINATION: Histologic sections of all submitted blocks are examined by light microscopy. These findings, together with the gross examination, support the pathologic diagnosis. GROSS DESCRIPTION: A. The specimen, labeled and designated "Heriberto Penny, cecum colon biopsy," is received in formalin and consists of six joseph soft tissue fragments, ranging from 0.2-0.7 cm. Entirely submitted in (A1). B. The specimen, labeled and designated "Heriberto Penny, terminal ileum biopsy," is received in formalin and consists of five joseph soft tissue fragments, ranging from 0.4-0.7 cm. Entirely submitted in (B1). C. The specimen, labeled and designated "Heriberto Penny, transverse colon biopsy," is received in formalin and consists of two joseph soft tissue fragments, ranging from 0.5 cm. Entirely submitted in (C1). D. The specimen, labeled and designated "Heriberto Penny, descending left colon biopsy," is received in formalin and consists of one joseph soft tissue fragment, 0.8 cm. Entirely submitted in (D1). E. The specimen, labeled and designated "Heriberto Penny, sigmoid colon biopsy," is received in formalin and consists of three joseph soft tissue fragments, ranging from 0.2-0.4 cm. Entirely submitted in (E1). F. The specimen, labeled and designated "Zohaib T, rectum biopsy," is received in formalin and consists of two joseph soft tissue fragments, ranging from 0.3-0.4 cm. Entirely submitted in (F1). HS (under the direct supervision of a pathologist) The Gross Description was prepared using a voice recognition system. The report was reviewed for accuracy; however, sound-alike word errors, addition and/or deletions may occur. If there is any question about this report, please contact Client Services. ADDITIONAL NOTES: Immunohistochemical and/or in situ hybridization studies if performed in this case included appropriate positive controls that reacted as expected. This test was developed, and its performance characteristics determined by [facility]. It has not been cleared or approved by the U.S. Food and Drug Administration. The FDA has determined that such clearance or approval is not necessary. This test is used for clinical purposes. It should not be regarded as investigational or for research. [facility] is certified under the Clinical Laboratory Improvement Amendments of 1988 (CLIA) as qualified to perform high complexity clinical PATIENT NAME: ISAAC PENNY PATHOLOGY DATE OF : [birth year] REPORT #: [id number] PHYSICIAN: [employer] PCP: MOI STEPHEN NP REPORT IS CONFIDENTIAL AND NOT TO BE RELEASED WITHOUT AUTHORIZATION [facility] [address] [place], [place] [address] Signed laboratory testing. PERFORMING LABORATORY: Technical component was performed by [facility], [address] [place] [id number] (CLIA# [id number]). Professional interpretation was performed by [facility], [address] [place] [address], [place] [address] (CLIA#: [id number]). Diagnostician: Angel Celestin MD Pathologist Electronically Signed 02/02/2024 Copies: ~ PATIENT NAME: ISAAC PENNY PATHOLOGY DATE OF : [birth year] REPORT #: [id number] PHYSICIAN: LEANNE BUSH PCP: MOI STEPHEN NP REPORT IS CONFIDENTIAL AND NOT TO BE RELEASED WITHOUT AUTHORIZATION
== END 2024-01-31 16:07 | disposition other institution, planned readmission (95) | DRG 387 ==
LOC: ED 11:33 → MS 11:34
PROVIDERS: Emergency Medicine; ADMIT Surgery; ATTEND Surgery
PROC: 0DBH8ZX Excision of Cecum, Via Natural or Artificial Opening Endoscopic, Diagnostic (ICD-10-PCS; principal; 2024-01-28)
PROC: 0DBM8ZX Excision of Descending Colon, Via Natural or Artificial Opening Endoscopic, Diagnostic (ICD-10-PCS; 2024-01-28)
PROC: 0DBL8ZX Excision of Transverse Colon, Via Natural or Artificial Opening Endoscopic, Diagnostic (ICD-10-PCS; 2024-01-28)
PROC: 0DBN8ZX Excision of Sigmoid Colon, Via Natural or Artificial Opening Endoscopic, Diagnostic (ICD-10-PCS; 2024-01-28)
PROC: 0DBP8ZX Excision of Rectum, Via Natural or Artificial Opening Endoscopic, Diagnostic (ICD-10-PCS; 2024-01-28)
PROC: 0DBB8ZX Excision of Ileum, Via Natural or Artificial Opening Endoscopic, Diagnostic (ICD-10-PCS; 2024-01-28)
DX: K51.00 Ulcerative (chronic) pancolitis without complications (principal); F11.10 Opioid abuse, uncomplicated
CPT/HCPCS: 00811; 36415; 80053; 81003; 83605; 85025; 85060; 86140; 87493; A9270; J1170; J1644; J1720; J1885; J1956; J2405; J2704; J7030; J7121; J7512